=== PATIENT | male | born 1930 | race Caucasian/White ===

== ENCOUNTER 2016-09-01 12:28 | Observation (INO) | payer MEDICARE ==
[~2016-09-01] VITALS: Ht 182.9 cm; Wt 117.9 kg
[2016-09-01] VITALS (10 sets, daily range): BP systolic 102–154; BP diastolic 49–84; PULSE 72–130; RESP 16–20; O2SAT 93–97
[2016-09-01] MEDS ORDERED: 0.9% Sodium Chloride 1,000 ML IV ONE (13:20)
--- NOTE | 2016-09-01 13:21 | ED.REPORT ---
HPI-General Illness Date of Service Sep 01, 2016 ED Provider: Kenny Abdalla MD History of Present Illness: Patient showed up urgent care complaining of a sore throat, and cough-found to be profoundly tachycardic and sent to the ED The patient is an 86 year old male with history of hypertension, hyperlipidemia , who was brought to the emergency department by EMS from urgent care for abnormal vitals. The patient went to urgent care this morning for a sore throat that began 5 days ago. He has also noticed a mild cough, clear and yellow sputum , and mild shortness of breath. He denies fever, chills, diaphoresis, chest pain , nausea, vomiting, appetite changes, or lower extremity swelling. His isosorbide was increased from 60 to 90 last month for elevated blood pressure. He is also taking 40 mg furosemide daily. Nursing Notes Stated Complaint: GENERALIZED WEAKNESS Chief Complaint: General Complaint Nursing Notes Reviewed: Yes ([facility]) Allergies: Coded Allergies: Penicillins (Verified Allergy, Intermediate, RASH, 09/01/16) Uncoded Allergies: DIPTHERA VACCINE (Allergy, Intermediate, ARM SWELLS, 09/01/16) Scheduled Allopurinol (Allopurinol) 300 Mg Tablet 300 MG PO HS Dipyridamole/Aspirin 200-25 mg (Aggrenox 200-25 mg) 1 Each Capsule 1 CAPSULE PO BID Gabapentin (Gabapentin) 300 Mg Capsule 300 MG PO BID Isosorbide MN ER (Isosorbide MN ER) 30 Mg Tab.er.24h 30 MG PO DAILY Isosorbide MN ER (Isosorbide MN ER) 60 Mg Tab.er.24h 60 MG PO DAILY Losartan/HCTZ 100-25 mg (Losartan/HCTZ 100-25 mg) 1 Each Tablet 1 TABLET PO DAILY Simvastatin (Simvastatin) 20 Mg Tablet 20 MG PO HS General Time Seen by MD: 13:05 Chief Complaint Other (abnormal vitals at ) Hx Obtained From: Patient, EMS Arrived By: Ambulance Sudden in Onset?: No Onset Occurred: 5 days ago Symptom Duration: Since onset Location: : Mouth (sore throat) Quality: Painful Severity: Current: Mild Severity: Maximum: Moderate Recent Healthcare: No recent hospitalization, Recent doctor visit Similar Sx Previous: No Past Medical History Past Medical History Hyperlipidemia History renal impairment History of gout Hypertension History of TIA Asthma in past (not on inhalers for years) Renal insufficiency (unknown baseline Cr) I suspected h/o CAD and CHF, but not explicitly listed by patient (EKG w/Q waves, on furosemide and isosorbide chronically) Past Surgical History Medical hernia repair Reports: Appendectomy Social History Lives in [place] much his year-his primary care provider is there Alcohol Use: Denies alcohol use Drug Use: Denies drug use Ambulatory Status Independent Review of Systems Full Review of Systems Constitutional: Denies: Chills, Fever Ears / Nose / Throat: Reports: Sore throat Respiratory: Reports: Prod cough, clear, Prod cough, yellow, Shortness of breath Cardiovascular: Denies: Chest pain GI: Denies: Nausea, Vomiting Skin: Denies Diaphoresis Complete sys rev & neg: except as marked. Physical Exam Vital Signs Vital Signs Date Time Temp Pulse Resp B/P Pulse Ox O2 Delivery O2 Flow Rate FiO2 09/01/16 14:26 127 18 106/63 94 Room Air 09/01/16 14:06 128 17 102/49 93 Room Air 09/01/16 12:34 36.6 130 18 105/66 93 Room Air Initial VS: Reviewed, Vital signs abnormal (Accuretic, hypotensive, relatively hypoxic) Head / Eyes: Atraumatic, Normocephalic, PERRL Neck: Supple, Non-tender, Full range of motion Abdomen / GI: Soft, Non-tender, No guarding, No rebound, No distention Extremities: Vascular intact, Neuro intact Skin: Warm, Dry, No cyanosis Neurologic: Alert, Oriented, Nonfocal Psychiatric: Mood/affect normal, Behavior normal, Normal thought content General/Constitutional: Awake, Alert, No acute distress Appears much better than expected with his current vitals. He insists that he feels okay. ENT: Airway patent, Mucous membranes moist, Pharynx NL, No peritonsillar abscess Respiratory / Chest: Breath sounds = bilat, No respiratory distress Lungs are coarse. Not visibly tachypneic althought sat is 92 % on room air. Cardiovascular: Regular rhythm, Heart sounds NL, No gallop, No murmurs, No rubs Heart Rate / Rhythm: Positive: Tachycardia Lower Ext Edema: Positive: Ankle, Bilateral 2+ Interpretation & Diagnostics Lab Results Interpretation Result Diagram: 09/01/16 1311 09/01/16 1311 Test 09/01/16 13:11 09/01/16 13:25 09/01/16 15:07 White Blood Count 16.0th/mm3 (3.8-10.1) Red Blood Count 6.87mil/mm3 (4.40-5.80) Hemoglobin 16.6g/dL (13.8-17.2) Hematocrit 51.3% (41.0-50.0) Mean Corpuscular Volume 74.7fL (81-100) Mean Corpuscular Hemoglobin 24.2pg (27.0-35.0) Mean Corpuscular Hemoglobin Concent 32.4% (32.0-37.0) Red Cell Distribution Width 16.2% (12.3-15.4) Platelet Count 422bil/L (150-400) Neutrophils (%) (Auto) 68% (40-74) Lymphocytes (%) (Auto) 24% (14-46) Monocytes (%) (Auto) 4% (4-12) Eosinophils (%) (Auto) 0% (0-5) Basophils (%) (Auto) 0% (0-3) Band Neutrophils % 4% (1-5) Metamyelocytes % % (0-0) Sodium Level 138mEq/L (134-144) Potassium Level 4.2mEq/L (3.5-5.2) Chloride Level 100mEq/L (97-108) Carbon Dioxide Level 21mmol/L (18-29) Blood Urea Nitrogen 40mg/dL (8-27) Creatinine 1.45mg/dL (0.76-1.27) Estimat Glomerular Filtration Rate 49mL/min (>59) Glucose Level 115mg/dL (60-99) Calcium Level 9.2mg/dL (8.5-10.1) Total Bilirubin 0.9mg/dL (0.0-1.2) Aspartate Amino Transf (AST/SGOT) 17U/L (0-50) Alanine Aminotransferase (ALT/SGPT) 9U/L (0-44) Alkaline Phosphatase 92U/L (25-160) Troponin T 0.017ug/L (0.0-0.011) Total Protein 6.9g/dL (6.4-8.4) Albumin 4.0g/dL (3.4-5.0) Procalcitonin 0.08ng/mL (0.00-0.08) Lactic Acid Level 1.1mmol/L (0.4-2.0) Urine Color Straw (YELLOW) Urine Appearance Hazy (CLEAR,HAZY) Urine pH 5.0 (5.0-8.0) Urine Specific [place] 1.010 (1.003-1.035) Urine Protein Negativemg/dL (NEG,TRACE) Urine Glucose (UA) Negativemg/dL (NEGATIVE) Urine Ketones Negativemg/dL (NEGATIVE) Urine Occult Blood Negative (NEGATIVE) Urine Nitrite Negative (NEGATIVE) Urine Bilirubin Negative (NEGATIVE) Urine Urobilinogen Normalmg/dL (NORMAL) Urine Leukocyte Esterase Negative (NEGATIVE) Urine RBC 0-2/hpf (0-2) Urine WBC 0-5/hpf (0-5) Urine Epithelial Cells Occasional/hpf (NONE-MOD) Urine Crystals None seen (NONE SEEN) Urine Bacteria None/hpf (NONE-FEW) Urine Hyaline Casts Occasional/lpf (NONE) Urine Granular Casts None seen (NONE SEEN) Urine Waxy Casts None seen (NONE SEEN) Urine Red Blood Cell Casts None seen (NONE SEEN) Urine White Blood Cell Casts None seen (NONE SEEN) Urine Mucus None seen (None Seen) Urine Trichomonas None seen (NONE SEEN) Urine Yeast None (NONE SEEN) Urine Culture Reflexed Not indicated Lab Results Interpretation: CBC positive leukocytosis CMP positive renal insufficiency, acuity uncertain Troponin marginally elevated, significance uncertain in the setting of renal insufficiency and clinical sepsis Lactic acid 1.1 Blood cultures 2 pending Urinalysis negative Rapid strep negative ECG Interpretation ECG Interpretation: Sinus tachycardia with a rate of 127 RBBB Q waves inferiorly suggestive of previous infarct Unchanged from urgent care Time: 14:59 Interpreted by: ED physician X-Ray Chest Interpretation Chest Xray Interpretation: IMPRESSION: No acute cardiopulmonary disease. Pulmonary remote granulomatous disease. Dictated by: Maximino Child M.D. on 09/01/2016 at 12:37 Interpretation / Wet Read by: Interpret - Radiologist Re-Eval/Medical Decision Med Decision/Clinical Course This is an 86-year-old male who reports for the past several days he has felt generally weak, has had a sore throat, does admit to a cough productive of some yellow sputum. I did after several days of not getting better he go to urgent care. When he showed up at urgent care is noted to be tachycardic in the 130s to 140s, and so was sent over to the emergency department. He reports he "generally feels well", although on arrival he is still tachycardic in the 130s , he is mildly hypotensive with a pressure in the low 90s, and his O2 sats only 92% on room air. He denies chest pain, denies shortness of breath, but reports generalized fatigue. He reports some mild sore throat, mild cough. He doesNot appear as toxic as his vitals might suggest. His throat is clinically normal in appearance, he is not visibly dyspneic, but he does have mild tachypnea. His lungs are clear. He has edema in the lower extremities, which she states is chronic and unchanged. His EKG from the clinic was reviewed and reveals a tachycardia, and bundle- branch block no prior EKGs available for comparison. His chest x-ray was negative per the radiologist for acute clearcut disease. Blood work is notable for marked leukocytosis-the patient reports she has had a mild nonspecific leukocytosis) about 12-14,000 for the past few months of uncertain etiology, but today it is higher. He has renal insufficiency, unknown baseline. HEENT hydration given his tachycardia and hypotension, and his blood pressure improved about 100 systolic. Again he appears better than his vitals would suggest, but remains persistently tachycardic. Overall his presentation is highly concerning for underlying sepsis, with a probable pulmonary etiology. Given hypotensive, tachycardia-Anaprox to be initiated per the hospital sepsis protocol. Given his penicillin allergies, cefepime is being substituted. The patient is receiving fluids, albeit slightly more judicious given he has findings of chronic heart failure. Given the absence of a lucie infiltrate despite the vitals, a viral PCR is being obtained. The and given the patient's marked vital sign abnormalities, laboratory abnormalities, age and comorbidities-his admission for continued management. Source of Hx: Old records Time of Eval: 14:21 Re-Evaluation/Progress Note: Rechecked the patient. Discussed plan for admission. He understands and agrees with plan. All questions were addressed. Consultation : Referral / Consult Name: Apollo Hernández MD Consulted With: Hospitalist Call Returned at: 15:13 Cushion Spring Assembler: Will see patient, Agrees with eval, Agrees with plan, Accepts admit Differential Diagnosis: Negative: Acute coronary syndrome, Allergies, Diabetes mellitus, G-tube repair/replacement, Hematoma, Influenza, Laceration, Malingering, Neutropenia, Syncope Counseled Regarding: Diagnosis, Lab results, Need for admission Discharge & Departure Primary Impression: Sepsis Sepsis type: sepsis due to unspecified organism Qualified Code: A41.9 - Sepsis, unspecified organism Additional Impression: Pneumonia Pneumonia type: due to unspecified organism Laterality: unspecified laterality Lung location: unspecified part of lung Qualified Code: J18.9 - Pneumonia, unspecified organism Disposition: ADMITTED TO HOSPITAL Discharge Condition All VS Reviewed: Yes Condition: Stable Referrals: Yaniv Bustamante (PCP) Will Aden MD (Family) Crit Care Except Billable Proc Time Spent: 30-74 minutes Services Performed: Patient management by me, Time spent at bedside, Reviewing test results, Reviewing imaging, Discussing patient care Scribe Attestation Portions of this note were transcribed by Emily Junior. I, Dr. Abdalla personally performed the history, physical exam and medical decision-making; I reviewed and confirmed the accuracy of the information in the transcribed note. Signed by: Emilia Osuna, 09/01/2016 at 1530. copies to: Yaniv Bustamante; Will Aden MD, Matthew F MD Sep 01, 2016 13:21 Emily Junior Sep 01, 2016 13:24
[2016-09-01 13:27] LABS: TROPONIN T 0.017 ug/L (0.0-0.011)
[2016-09-01 13:29] LABS: Mean Corpuscular Hemoglobin 24.2 pg (27.0-35.0); Mean Corpuscular Volume 74.7 fL (81-100); Platelet Count 422 bil/L (150-400)
--- NOTE | 2016-09-01 13:40 | DRSVH ---
PROCEDURE: X-RAY CHEST ONE VIEW, PORTABLE ([id number]) INDICATIONS: 86 year-old male with cough and shortness of breath for 5 days. TECHNIQUE: One view of the chest was acquired. COMPARISON: None. FINDINGS: Surgical changes and devices: None. Lungs and pleura: No pleural effusions or pneumothorax. Lungs are clear, except for peripheral left lung granulomas. Mediastinum: Mediastinal contours appear normal. Heart size is normal. There is aortic atheroscler osis. Bones and chest wall: No suspicious bony lesions. Overlying soft tissues appear unremarkable. IMPRESSION: No acute cardiopulmonary disease. Pulmonary remote granulomatous disease. Dictated by: Maximino Child M.D. on 09/01/2016 at 12:37 Approved by: Maximino Child M.D. on 09/01/2016 at 12:39
[2016-09-01 13:45] LABS: BASOPHILS % (AUTO) 0 % (0-3); EOSINOPHILS % (AUTO) 0 % (0-5); MONOCYTES % (AUTO) 4 % (4-12); NEUTROPHILS % (AUTO) 68 % (40-74)
[2016-09-01] MEDS ORDERED: Cefepime Inj 2,000 MG in Dextrose 5% Minibag Plus 100 ML IV ONE (13:55)
[2016-09-01] MEDS ORDERED: Vancomycin Dose per Pharmacist XX ONE (13:55)
[2016-09-01] MEDS ORDERED: levoFLOXacin Inj 750 MG in IV Premix 1 EACH IV ONE (13:55)
[2016-09-01] MEDS ORDERED: Vancomycin Inj 2,000 MG in 0.9% Sodium Chloride 500 ML IV ONE (14:20)
[2016-09-01] MEDS ORDERED: ISOS30TA4 PO (15:10)
[2016-09-01] MEDS ORDERED: GABA-502 PO (15:10)
[2016-09-01] MEDS ORDERED: SIMV20TA4 PO (15:10)
[2016-09-01] MEDS ORDERED: LOSA1TAB70 PO (15:10)
[2016-09-01] MEDS ORDERED: ISOS60TA2 PO (15:10)
[2016-09-01] MEDS ORDERED: DPAS20025 PO (15:10)
[2016-09-01] MEDS ORDERED: ALLO300T2 PO (15:10)
[2016-09-01] MEDS ORDERED: Ondansetron 2 mg/mL 2 mL Inj IVPUSH PRN (15:10)
[2016-09-01 15:25] LABS: APPEARANCE,URINE HAZY (CLEAR,HAZY); COLOR,URINE STRAW (YELLOW)
[2016-09-01 15:26] LABS: OCCULT BLOOD,URINE NEGATIVE (NEGATIVE); UROBILINOGEN,URINE NORMAL (NORMAL)
[2016-09-01] MEDS ORDERED: 0.9% Sodium Chloride 1,000 ML IV SCH (15:35)
--- NOTE | 2016-09-01 16:20 | PCM.HPMED ---
Subjective Date of Service Sep 01, 2016 Primary Provider: Admitting Physician: Primary Care Physician: Yaniv Bustamante Attending Physician: Admit Status: From the Emergency Department, Admit to Jennifer Potter, [facility] Telemetry Chief Complaint: Sore throat/racing heart rate History of Present Illness: The patient is an 86 yo male with history of HTN, gout, hyperlipidemia, and CKD who was sent to the ER from Urgent Care via EMS for tachycardia. Patient reports a sore throat and mild cough with clear and yellow phlegm for the last 5 days. Other associated symptoms include post-nasal drip and generalized fatigue. His daughter reports that he has been low energy lately. She also admits that his Isosorbide was increased from 60 to 90 a month ago for elevated blood pressure. His son-in-law was sick recently and had similar symptoms. Patient denies any fever, chills, SOB, diaphoresis, chest pain, nausea, vomiting , appetite changes, or lower extremity swelling. He reports to have chronic bilateral LE swelling, which is actually better today. He had an Echocardiogram in [place] 1.5 years ago and it was normal per the patient. He does not have a PCP here. He lives 1/2 year in [place] and 1/2 year in [place]. At the urgent care today , he was found to have tachycardia in the 130s-140s and BP 106/63. Patient reports to have uptodate flu and pneumonia vaccine. On arrival to the ER, patient is still tachycardic in the 130s, he is mildly hypotensive with a pressure in the low 90s, and his O2 sats only 92% on room air. His EKG from the clinic was reviewed and reveals a tachycardia, and bundle- branch block no prior EKGs available for comparison. His chest x-ray was negative per the radiologist for acute disease. Blood work is notable for marked leukocytosis of 16,000. The patient reports that he has had a mild nonspecific leukocytosis about 12-14,000 for the past few months of uncertain etiology, but today it is higher. He has renal insufficiency, unknown baseline. Patient was admitted for sepsis and received a liter of fluid and antibiotics initiated with Vanco, Cefepime, and Levaquin. Review of Systems: A comprehensive ROS was conducted with the patient and is otherwise negative unless stated otherwise in the HPI. Allergies Coded Allergies: Penicillins (Verified Allergy, Intermediate, RASH, 09/01/16) Uncoded Allergies: DIPTHERA VACCINE (Allergy, Intermediate, ARM SWELLS, 09/01/16) Home Medications Allopurinol (Allopurinol) 300 Mg Tablet 300 MG PO HS Dipyridamole/Aspirin 200-25 mg (Aggrenox 200-25 mg) 1 Each Capsule 1 CAPSULE PO BID Gabapentin (Gabapentin) 300 Mg Capsule 300 MG PO BID Furosemide 40mg PO daily Isosorbide MN ER (Isosorbide MN ER) 30 Mg Tab.er.24h 30 MG PO DAILY Isosorbide MN ER (Isosorbide MN ER) 60 Mg Tab.er.24h 60 MG PO DAILY Losartan/HCTZ 100-25 mg (Losartan/HCTZ 100-25 mg) 1 Each Tablet 1 TABLET PO DAILY Simvastatin (Simvastatin) 20 Mg Tablet 20 MG PO HS PMH Hyperlipidemia History renal impairment History of gout Hypertension History of TIA Asthma in past (not on inhalers for years) Renal insufficiency (unknown baseline Cr) I suspected h/o CAD and CHF, but not explicitly listed by patient (EKG w/Q waves , on furosemide and isosorbide chronically) Surgical History Umbilical hernia repair Appendectomy Social History Hx Alcohol Use: No Hx Substance Use: No Smoking Status: Former Smoker Living Arrangement: with Family Additional Information Lives in [place] 1/2 of the year and has a PCP there, but no PCP here in [place]. Exam Vital Signs Vital Sign - Last Date Time Temp Pulse Resp B/P Pulse Ox O2 Delivery O2 Flow Rate FiO2 09/01/16 14:26 127 18 106/63 94 Room Air 09/01/16 12:34 36.6 Exam General: Well developed, well nourished, awake, alert, in no acute distress, normal speech HEENT: Atraumatic, Normocephalic, PERRLA, EOMI. Mucosal membrane moist. Oropharynx with postnasal drip noted but no exudates or cobblestoning. Neck: Supple, non-tender, full range of motion, no lymphadenopathy. Respiratory: Clear to auscultation bilaterally. Mild rales at bibasilar bases. No wheezes or rhonchi. No accessory muscle use. No cough noted. No respiratory distress. Cardiovascular: Tachycardia, regular rhythm, no murmurs or gallops appreciated. Abdomen: Soft, obese, nondistended, Non-tender, No guarding, No rebound, No distention Extremities: Vascular intact, Neuro intact, Moderate pitting edema from mid tibia to ankle bilaterally. Skin: Warm, Dry, No cyanosis Neurologic: Alert, Oriented, Nonfocal, CN II-XII intake. Normal motor strength , Sensation intact. Psychiatric: Mood/affect normal, Behavior normal, Normal thought content Lab and Diagnostics Result Diagram: 09/01/16 1311 09/01/16 1311 X-Rays, CTs and MRIs PROCEDURE: X-RAY CHEST ONE VIEW, PORTABLE IMPRESSION: No acute cardiopulmonary disease. Pulmonary remote granulomatous disease. Dictated by: Maximino Child M.D. on 09/01/2016 at 12:37 12-lead ECG Sinus tachycardia with a rate of 127 RBBB Q waves inferiorly suggestive of previous infarct Unchanged from urgent care Assessment & Plan 86 yo male with history of HTN, gout, hyperlipidemia, and CKD who was sent to the ER from Urgent Care via EMS for tachycardia and was found to have sepsis. Sepsis, POA, resolved. Patient presents with tachycardia (130s) and WBC of 16,000. His BP was lower than his usual at 105/66 and pulse Ox is 93% at room air. Source is likely upper respiratory infection. - Likely secondary to viral infection although PCR respiratory viral is negative. - Doubt that the patient has pneumonia. - CXR is negative for infection, but empiric antibiotics (Vanco+Levo+Cefipime) initiated in the ER. Will hold off on further antibiotic and follow clinically. - Patient's hypotension improved with IVF. - Blood culture pending. Tachycardia, POA, improved. - HR improving and patient is asymptomatic. - Likely stress reaction secondary to dehydration/hypotension - Monitor on telemetry Renal insufficiency, acuity unknown, POA, active. - Patient reports chronic renal insufficiency, unknown Cr at baseline. - Cr 1.45 on admission/ - Follow clinically - Avoid nephrotoxic drugs. Bilateral peripheral edema, chronic, stable. - Moderate pitting edema on exam, but at baseline or improved per the patient. - Unknown etiology. No known history of CHF. Patient reports normal Echo 1.5 years ago. Will order Echo in the morning. - He takes Furosemide 40mg daily at home. Will hold this overnight given sepsis. - Follow clinically. HTN, chronic, stable. - Patient had low BP upon arrival to the ER, which resolved with IVF. - BP is currently 144/83. - Will D/C IVF. - Patient take Furosemide 40mg, Imdur 90mg, and Losartan/HCTZ 100mg/25mg at home. Will hold this medication overnight and follow clinically. - Will likely need to decrease the Imdur to 60mg daily at discharge. Leukocytosis, chronic, POA. - Patient reports history of elevated WBC around 12,000 at baseline. Unknown etiology. - Will need to follow up with Oncology as outpatient. Gout, chronic, presume stable. - Resume home Allopurinol - Check uric acid level Peripheral neuropathy, unknown etiology, chronic. - Resume home Gabapentin CODE STATUS: DNR/DNI conf Patient is admitted under observation status with expected stay less than 2 midnights due to complexity of his medical issues. Pain Evaluation: Adequate Pain Control GI Prophylaxis: Not indicated VTE Prophylaxis: SCDs Resuscitation Status: DNR/DNI:Do Not Resuscitate/Intubate Payal Duffy DO Sep 01, 2016 16:20
--- NOTE | 2016-09-01 18:34 | NUR ---
Admit Pt admitted to floor via stretcher at 1755. VSS. Pt denies chest pain or SOB. Comfortable and without pain. Ordering dinner and up OOB to BR. Tele placed. Oriented to room. Will continue to monitor.
--- NOTE | 2016-09-01 18:39 | NUR ---
Vanco Per MD, pt does not need to receive vanco in [place]. Med non administered per MD.
--- NOTE | 2016-09-01 20:19 | NUR ---
Case Management: MARQUIS explained to patient at 2004, all questions answered. Signed original placed in chart, copy given to patient. Copy of "How Medicare Covers Self-Administered Drugs Given in Hospital Outpatient Settings" given to patient as he states he had Medicare Part D. Margaret Tilley RN
[2016-09-01] MEDS: Dipyridamole-Aspirin 200-25 mg ER12 Capsule PO SCH (21:07)
[2016-09-02 03:05] VITALS: BP 169/77; PULSE 75; RESP 20; O2SAT 94
[2016-09-02 03:17] LABS: Mean Corpuscular Hemoglobin 24.2 pg (27.0-35.0); Mean Corpuscular Volume 75.1 fL (81-100); Platelet Count 358 bil/L (150-400)
[2016-09-02 03:48] LABS: BASOPHILS % (AUTO) 0 % (0-3); EOSINOPHILS % (AUTO) 3 % (0-5); MONOCYTES % (AUTO) 22 % (4-12); NEUTROPHILS % (AUTO) 68 % (40-74)
[2016-09-02 04:01] VITALS: BP 155/75; PULSE 78
[2016-09-02 04:41] LABS: Magnesium 1.3 mg/dL (1.6-2.6); Phosphorus 3.3 mg/dL (2.5-4.9)
--- NOTE | 2016-09-02 04:53 | NUR ---
Telemetry/BP Pt denies any c/o pain. Alert and oriented x3. SBP 140-150s and per pt is about baseline for him. Telemetry SR in 70s with IVCD. No coughing noted/reported. Ambulates in room using cane with steady gait noted.
[2016-09-02 06:31] VITALS: PULSE 78
[2016-09-02 08:01] VITALS: BP 159/71; PULSE 63; RESP 14; O2SAT 96
[2016-09-02] MEDS: Dipyridamole-Aspirin 200-25 mg ER12 Capsule PO SCH (08:04)
[2016-09-02] MEDS ORDERED: Isosorbide Mononitrate 60 mg ER24 Tablet PO SCH ×2 (08:30)
--- NOTE | 2016-09-02 10:11 | NUR ---
Social Work: Initial Assessment/Multidisciplinary Rounds/Discharge D: Per EMR review, pt is an 86 year old male admitted for Spesis. Pt is Medicare with AARP Supplement; pt has no LTC insurance or VA Benefits. PCP is BELLA Pillai. NOK is Amelia [place], dtr, . Advanced directives requested for chart. Readmit score is 1/8. SALES REPRESENTATIVE [employer] met with patient at bedside. Sw role explained, discharge planning checklist and contact info provided. Pt lives in [place] with his daughters. Pt is I at baseline, uses a Cane for ambulation but states he is completely I with all ADLs and self care. Pt continues to drive, has never had HH or skilled rehab. Pt declined to provide information about his home and steps into the home stating it is not relevant. Pt states he will transport himself home. Pt discussed in am rounds. Pt is very eager to leave. No concerns for pt's capacity for self care. No discharge needs identified. A: Pt who is I at baseline. P: Pt to discharge home via POV anticipated today. No sw needs. SALES REPRESENTATIVE [employer] to continue to follow if needs arise. RAGINI Bui Addendum: 09/02/16 at 1018 by ELVIE MARVIN Amended: Links added. Addendum: 09/02/16 at 1103 by ELVIE MARVIN SS SALES REPRESENTATIVE [employer] spoke rich webster's daughter, Amelia. She has no concerns for patient's discharge. She will be transporting the patient home.
--- NOTE | 2016-09-02 10:42 | PCM.DIMED ---
Discharge Instructions Date of Service Sep 02, 2016 Dates of Hospitalization Sep 01, 2016 at 16:34 Discharge Diagnosis Discharge Diagnosis hypotension and tachycardia, likely medication induced. Medication Instructions Additional med instructions Please note that Imdur dose was decreased to 30mg daily, monitor your blood pressure, can be adjusted to 60mg daily if blood pressure and Heart rate is stable. Please use Lasix 20 to 40mg as needed for your lower leg swelling. Please continue Losartan/HCTZ daily. Diet Discharge Diet: Low fat, Low Sodium, Heart Healthy Activity Discharge Activity: No restrictions Call your provider Call your provider for: Shortness of breath, Chest pain Patient Instructions Patient Instructions You were hospitalized with low blood pressure and elevated heart rate, likely due to medication changes, your Imdur. Your blood pressure and heart rate was normalized as we held this medicine. Please note that initially infection was suspected, however, no evidence of ongoing infection was noticed during hospitalization. Please continue to monitor your blood pressure and heart rate at home, return to hospital if you notice any changes. Please follow up with your doctor in [place] once you go back. Given your chronically elevated wbc count, your will likely need further assessment with Cabinet Installer, Follow-up with PCP in: 1 week Apollo Hernández MD Sep 02, 2016 10:42
--- NOTE | 2016-09-02 11:37 | NUR ---
Discharge The pt left the unit with his daughter at 1140 via wheelchair. The pt left with all his belongings and his packet of discharge paperwork including info on medications and follow up appointment instructions. The pt is being transported home by his daughter in a private vehicle. the pt left the unit A&Ox3 with VSS.
--- NOTE | 2016-09-02 13:57 | PCM.DC.MED ---
Discharge Summary Date of Service Sep 02, 2016 Dates of Hospitalization Date of Hospital Admission Sep 01, 2016 at 16:34 Date of Discharge: Sep 02, 2016 Providers: Admitting Physician: Apollo Hernández MD Primary Care Physician: Yaniv Bustamante Attending Physician: Apollo Hernández MD Diagnosis at Time of Discharge Diagnosis at Time of Discharge acute dx hypotension and tachycardia, likely medication induced. SERGIO on CKD chronic dx Bilateral peripheral edema, HTN, Leukocytosis, chronic, Gout, Peripheral neuropathy, Procedures XRay, CTs & MRIs PROCEDURE: X-RAY CHEST ONE VIEW, PORTABLE IMPRESSION: No acute cardiopulmonary disease. Pulmonary remote granulomatous disease. Dictated by: Maximino Child M.D. on 09/01/2016 at 12:37 ECG 12 Lead Sinus tachycardia with a rate of 127 RBBB Q waves inferiorly suggestive of previous infarct Unchanged from urgent care Brief History The patient is an 86 yo male with history of HTN, gout, hyperlipidemia, and CKD who was sent to the ER from Urgent Care via EMS for tachycardia. Patient reports a sore throat and mild cough with clear and yellow phlegm for the last 5 days. Other associated symptoms include post-nasal drip and generalized fatigue. His daughter reports that he has been low energy lately. She also admits that his Isosorbide was increased from 60 to 90 a month ago for elevated blood pressure. His son-in-law was sick recently and had similar symptoms. Patient denies any fever, chills, SOB, diaphoresis, chest pain, nausea, vomiting , appetite changes, or lower extremity swelling. He reports to have chronic bilateral LE swelling, which is actually better today. He had an Echocardiogram in [place] 1.5 years ago and it was normal per the patient. He does not have a PCP here. He lives 1/2 year in [place] and 1/2 year in [place]. At the urgent care today , he was found to have tachycardia in the 130s-140s and BP 106/63. Patient reports to have uptodate flu and pneumonia vaccine. On arrival to the ER, patient is still tachycardic in the 130s, he is mildly hypotensive with a pressure in the low 90s, and his O2 sats only 92% on room air. His EKG from the clinic was reviewed and reveals a tachycardia, and bundle- branch block no prior EKGs available for comparison. His chest x-ray was negative per the radiologist for acute disease. Blood work is notable for marked leukocytosis of 16,000. The patient reports that he has had a mild nonspecific leukocytosis about 12-14,000 for the past few months of uncertain etiology, but today it is higher. He has renal insufficiency, unknown baseline. Patient was admitted for sepsis and received a liter of fluid and antibiotics initiated with Vanco, Cefepime, and Levaquin. Hospital Course 86 yo male with history of HTN, gout, hyperlipidemia, and CKD who was sent to the ER from Urgent Care via EMS for tachycardia and was found to have sepsis. acute dx #hypotension and tachycardia, likely medication induced Patient was initially admitted with impression of severe sepsis with tachycardia , mucositis is of 16,000, relatively low blood pressure. However, x-ray did not suggest pneumonia, no other signs of infection was noted. Initially patient was started on vancomycin, levofloxacin, cefepime. Patient does have severe penicillin allergies-likely angioedema. However patient was remarkably nontoxic looking, given low suspicion of infection, antibiotics were held. It was noted from history that Imdur dosage was increased from 60 mg to 90 mg past 30 days, was likely to contribute his low blood pressure with reflex tachycardia. Since Imdur was held, blood pressure and tachycardia were normalized. Patient remained clinically stable, no signs of infection. Basic infectious workup including blood cultures, respiratory PCR was negative. Patient deemed safe for discharge to home Renal insufficiency, Patient reports chronic renal insufficiency, unknown Cr at baseline, Cr 1.45 on admission, 1.27 upon d/c chronic dx Bilateral peripheral edema, Moderate pitting edema on exam, but at baseline or improved per the patient, Unknown etiology. No known history of CHF. Patient reports normal Echo 1.5 years ago. plan was to use lasix as needed, likely needs TTE in the clinic. HTN, Patient take Furosemide 40mg, Imdur 90mg, and Losartan/HCTZ 100mg/25mg at home, BP trends 150s close to target after holding Imdur, p[claudia was to decreased Imdur to 30mg daily and monitor BP, HR Leukocytosis, chronic, Patient reports history of elevated WBC around 12,000 at baseline. Unknown etiology. Will need to follow up with Oncology as outpatient. Gout, chronic, presume stable. Resume home Allopurinol Peripheral neuropathy, unknown etiology, chronic, Resume home Gabapentin CODE STATUS: DNR/DNI per POLST Exam Vital Signs (Last) Date Time Temp Pulse Resp B/P Pulse Ox O2 Delivery O2 Flow Rate FiO2 09/02/16 08:01 36.9 63 14 159/71 96 Room Air Exam NAD, comfortably laying down on the bed no JVD, MMM, no LAD RRR, nl s1, s2 no mrg CTAB, no w,c S,ND,NT,normoactive BS+ warm, no edema, pulses 2/2 Test 09/01/16 13:11 09/01/16 13:25 09/01/16 15:07 09/01/16 15:15 Band Neutrophils % 4% (1-5) Metamyelocytes % % (0-0) Troponin T 0.017ug/L (0.0-0.011) Lactic Acid Level 1.1mmol/L (0.4-2.0) Urine Color Straw (YELLOW) Urine Appearance Hazy (CLEAR,HAZY) Urine pH 5.0 (5.0-8.0) Urine Specific [place] 1.010 (1.003-1.035) Urine Protein Negativemg/dL (NEG,TRACE) Urine Glucose (UA) Negativemg/dL (NEGATIVE) Urine Ketones Negativemg/dL (NEGATIVE) Urine Occult Blood Negative (NEGATIVE) Urine Nitrite Negative (NEGATIVE) Urine Bilirubin Negative (NEGATIVE) Urine Urobilinogen Normalmg/dL (NORMAL) Urine Leukocyte Esterase Negative (NEGATIVE) Urine RBC 0-2/hpf (0-2) Urine WBC 0-5/hpf (0-5) Urine Epithelial Cells Occasional/hpf (NONE-MOD) Urine Crystals None seen (NONE SEEN) Urine Bacteria None/hpf (NONE-FEW) Urine Hyaline Casts Occasional/lpf (NONE) Urine Granular Casts None seen (NONE SEEN) Urine Waxy Casts None seen (NONE SEEN) Urine Red Blood Cell Casts None seen (NONE SEEN) Urine White Blood Cell Casts None seen (NONE SEEN) Urine Mucus None seen (None Seen) Urine Trichomonas None seen (NONE SEEN) Urine Yeast None (NONE SEEN) Urine Culture Reflexed Not indicated Urine Legionella pneumophilia Ag Negative (Negative) Test 09/02/16 03:00 White Blood Count 16.2th/mm3 (3.8-10.1) Red Blood Count 6.58mil/mm3 (4.40-5.80) Hemoglobin 15.9g/dL (13.8-17.2) Hematocrit 49.4% (41.0-50.0) Mean Corpuscular Volume 75.1fL (81-100) Mean Corpuscular Hemoglobin 24.2pg (27.0-35.0) Mean Corpuscular Hemoglobin Concent 32.2% (32.0-37.0) Red Cell Distribution Width 15.8% (12.3-15.4) Platelet Count 358bil/L (150-400) Neutrophils (%) (Auto) 68% (40-74) Lymphocytes (%) (Auto) 7% (14-46) Monocytes (%) (Auto) 22% (4-12) Eosinophils (%) (Auto) 3% (0-5) Basophils (%) (Auto) 0% (0-3) Hematology Comments Sodium Level 137mEq/L (134-144) Potassium Level 5.0mEq/L (3.5-5.2) Chloride Level 98mEq/L (97-108) Carbon Dioxide Level 23mmol/L (18-29) Blood Urea Nitrogen 37mg/dL (8-27) Creatinine 1.27mg/dL (0.76-1.27) Estimat Glomerular Filtration Rate 57mL/min (>59) Glucose Level 96mg/dL (60-99) Calcium Level 8.9mg/dL (8.5-10.1) Phosphorus Level 3.3mg/dL (2.5-4.9) Magnesium Level 1.3mg/dL (1.6-2.6) Total Bilirubin 1.4mg/dL (0.0-1.2) Aspartate Amino Transf (AST/SGOT) 13U/L (0-50) Alanine Aminotransferase (ALT/SGPT) 8U/L (0-44) Alkaline Phosphatase 91U/L (25-160) Total Protein 6.2g/dL (6.4-8.4) Albumin 4.1g/dL (3.4-5.0) Procalcitonin 0.08ng/mL (0.00-0.08) Discharge Medications Discharge Medications Allopurinol (Allopurinol) 300 Mg Tablet 300 MG PO HS (Reported) Dipyridamole/Aspirin 200-25 mg (Aggrenox 200-25 mg) 1 Each Capsule 1 CAPSULE PO BID (Reported) Gabapentin (Gabapentin) 300 Mg Capsule 300 MG PO BID (Reported) Isosorbide [place] ER (Isosorbide MN ER) 30 Mg Tab.er.24h 30 MG PO DAILY (Reported) Losartan/HCTZ 100-25 mg (Losartan/HCTZ 100-25 mg) 1 Each Tablet 1 TABLET PO DAILY (Reported) Simvastatin (Simvastatin) 20 Mg Tablet 20 MG PO HS (Reported) Additional med instructions Please note that Imdur dose was decreased to 30mg daily, monitor your blood pressure, can be adjusted to 60mg daily if blood pressure and Heart rate is stable. Please use Lasix 20 to 40mg as needed for your lower leg swelling. Please continue Losartan/HCTZ daily. Followup Plan Disposition: Home Discharge Diet: Low fat, Low Sodium, Heart Healthy Discharge Activity: No restrictions Patient Instructions You were hospitalized with low blood pressure and elevated heart rate, likely due to medication changes, your Imdur. Your blood pressure and heart rate was normalized as we held this medicine. Please note that initially infection was suspected, however, no evidence of ongoing infection was noticed during hospitalization. Please continue to monitor your blood pressure and heart rate at home, return to hospital if you notice any changes. Please follow up with your doctor in [place] once you go back. Given your chronically elevated wbc count, your will likely need further assessment with [facility], Follow-up with PCP in: 1 week Time spent 65 minutes Apollo Hernández MD Sep 02, 2016 13:50
--- NOTE | 2016-09-02 17:57 | NUR ---
spiritual care: pt request (late entry) conversational visit before discharge. pt calm, described his lifestyle changes and supportive family. dtr at bedside, supportive.
== END 2016-09-02 11:42 | disposition home or self-care (01) ==
LOC: EDUNIT# 12:28 → SED 12:28 → EDBD 12:28 → PCC 16:34 → INTOOBSV 16:34 → PCC 17:30
PROVIDERS: ADMIT Internal Medicine; ATTEND Internal Medicine
DX: A41.9 Sepsis, unspecified organism (principal); I95.9 Hypotension, unspecified; R00.0 Tachycardia, unspecified; N17.9 Acute kidney failure, unspecified; N18.9 Chronic kidney disease, unspecified; R60.1 Generalized edema; I12.9 Hypertensive chronic kidney disease with stage 1 through stage 4 chronic kidney disease, or unspecified chronic kidney disease; D72.829 Elevated white blood cell count, unspecified; M10.9 Gout, unspecified; G62.9 Polyneuropathy, unspecified; E78.5 Hyperlipidemia, unspecified; J45.909 Unspecified asthma, uncomplicated; Z86.73 Personal history of transient ischemic attack (TIA), and cerebral infarction without residual deficits; Z87.891 Personal history of nicotine dependence; Z66 Do not resuscitate
CPT/HCPCS: 36415; 71010; 80053; 81000; 83605; 83735; 84100; 84145; 84484; 85025; 86403; 87040; 87449; 87633; 87641; 87880; 93005; 96365; 96368; 99291; A4300; G0378; G0463; J0692; J1956; J7030